=== PATIENT | male | born 1950 | race Asian ===

== ENCOUNTER 2021-01-24 17:06 | Emergency (ER) | payer OTHER ==
[~2021-01-24] VITALS: Ht 177.8 cm; Wt 79.4 kg
[2021-01-24 17:42] VITALS: BP_SYST 136
[2021-01-24] MEDS ORDERED: predniSONE 20 MG TABLET PO ONE (19:30)
[2021-01-24] MEDS ORDERED: EPINEPHrine 1 MG/ML VIAL IM ONE (19:30)
[2021-01-24 19:45] LABS: BASOPHILS % (AUTO) 0.3 % (0.0-2.0); EOSINOPHILS # (AUTO) 0.4 K/uL (0.0-0.4); EOSINOPHILS % (AUTO) 6.9 % (0.0-4.0); HEMATOCRIT 38.5 % (36-54); HEMOGLOBIN 12.8 g/dL (14.0-18.0); LYMPHOCYTES # (AUTO) 1.2 K/uL (1.0-5.5); LYMPHOCYTES % (AUTO) 20.1 % (20.5-51.5); MEAN CORPUSCULAR HEMOGLOBIN 31 pg (27-31); MEAN CORPUSCULAR HGB CONC 33 % (32-36); MEAN CORPUSCULAR VOLUME 94 fL (79.0-98.0); MONOCYTES # (AUTO) 0.5 K/uL (0.0-1.0); NEUTROPHILS # (AUTO) 3.7 K/uL (1.8-7.7); NEUTROPHILS % (AUTO) 63.7 % (40.0-70.0); PLATELET COUNT (AUTO) 212 K/uL (130-430); RED BLOOD CELL COUNT(AUTO) 4.08 MIL/uL (4.2-6.2); RED CELL DISTRIBUTION WIDTH 13.7 % (9.0-15.0); WHITE BLOOD COUNT (AUTO) 5.8 K/uL (4.8-10.8)
[2021-01-24] MEDS ORDERED: FAMOTIDINE 20 MG TABLET PO ONE (19:45)
[2021-01-24] MEDS ORDERED: EPINEPHrine 1 MG/ML AMP ONE (19:46)
[2021-01-24] MEDS ORDERED: FAMO40TA71 PO (20:49)
[2021-01-24] MEDS ORDERED: PRED20TA PO (20:49)
[2021-01-24 20:57] VITALS: BP_SYST 128
== END 2021-01-24 20:57 | disposition home or self-care (01) ==
LOC: SED 17:06
DX: T78.40XA Allergy, unspecified, initial encounter (principal); I10 Essential (primary) hypertension; X58.XXXA Exposure to other specified factors, initial encounter
CPT/HCPCS: 36415; 82550; 85025; 96372; 99283; J0171; J7512